=== PATIENT | male | born 1995 | race American Indian/Alaskan Native ===

== ENCOUNTER 2019-10-12 11:53 | Emergency (ER) | payer SELFPAY ==
[2019-10-12 12:14] VITALS: BP 117/69
--- NOTE | 2019-10-12 13:01 | Emergency Department Report ---
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 EYES: Extra ocular muscles are intact. Pupils are equal, round, and reactive to light and accommodation. MOUTH: Mucous membranes are moist. Posterior pharynx clear, no exudate or lesions. Patent airways. LUNGS: Symetrical with respiration, No wheezing, no rales or crackles, CTAB. HEART: S1, S2 present, regular rate and rhythm without murmur, no rubs, no gallops. Non tender to palpation EXTREMITIES/MUSCULOSKELETAL: No cyanosis, clubbing, rash, lesions or edema. Full ROM bilaterally. UE/LE Pulses 2+ bilaterally. LE and UE 5+ strength bilaterally, straight leg raise negative bilaterally, no bony ttp, pt has mild right sided serratus anterior ttp upon full ROM of the RUE, no edema of the RUE, no increased warmth, neurovascularly intact NEUROLOGIC: The patient is cooperative with no focal neurologic deficits. PSYCHIATRIC: Mood is congruent with affect SKIN: Warm and dry Examination consistent with muscle strain No signs of septic joint, no swelling to suggest DVT, neurovascularly intact Patient is presenting with a nonmedical emergency at this time, medical screening examination performed and there is no threat to life or limb pt referred to the appropriate resources discussed strict return precautions with pt advised pt to please follow up with a health department or a clinic for a full STD panel. do not engage in sexual intercourse until you have been seen. have any partner tested and treated as well. may alternate tylenol or ibuprofen as needed. may use ice pack, heating pad, rest, epsom salt bath. follow up with a orthopedic doctor if symptoms are not improving. return to the emergency room for any new or worsening symptoms. - Exam Vital Signs: Vital Signs 10/12/19 12:13 Temperature 99.1 F Pulse Rate 88 Respiratory 14 Rate Blood Pressure 117/69 [Right] O2 Sat by Pulse 100 Oximetry MSE screening note: Focused history and physical exam performed. ED Disposition for MSE Clinical Impression: Concern about STD in male without diagnosis, Muscle strain Disposition: Z-07 MED SCREENING EXAM-LEFT Is pt being admited?: No Does the pt Need Aspirin: No Condition: Stable Instructions: Sexually Transmitted Diseases (ED), Safe Sex (ED), Muscle Strain (ED) Additional Instructions: please follow up with a health department or a clinic for a full STD panel. do not engage in sexual intercourse until you have been seen. have any partner tested and treated as well. may alternate tylenol or ibuprofen as needed. may use ice pack, heating pad, rest, epsom salt bath. follow up with a orthopedic doctor if symptoms are not improving. return to the emergency room for any new or worsening symptoms. Referrals: [facility] [Outside] - 2-3 Days [facility] [Outside] - 2-3 Days [facility] [Outside] - 2-3 Days KATE REID MD [Staff Physician] - 2-3 Days [facility] [Provider Group] - 2-3 Days Forms: Work/School Release Form(ED) Time of Disposition: 13:01 Print Language: MOHAWK
== END 2019-10-12 13:00 | disposition left against medical advice (07) ==
LOC: ED 11:53
DX: S46.912A Strain of unspecified muscle, fascia and tendon at shoulder and upper arm level, left arm, initial encounter (principal); R30.0 Dysuria; X58.XXXA Exposure to other specified factors, initial encounter; Y93.89 Activity, other specified; Y92.89 Other specified places as the place of occurrence of the external cause; Y99.8 Other external cause status
CPT/HCPCS: 99282

== ENCOUNTER 2019-12-14 11:39 | Emergency (ER) | payer SELFPAY ==
[2019-12-14 11:53] VITALS: BP 107/58
== END 2019-12-14 11:50 | disposition left against medical advice (07) ==
LOC: ED 11:39
DX: R06.00 Dyspnea, unspecified (principal); Z53.21 Procedure and treatment not carried out due to patient leaving prior to being seen by health care provider